=== PATIENT | female | born 1980 | race African-American/Black ===

== ENCOUNTER 2017-01-06 21:06 | Inpatient (IN) | payer OTHER ==
--- NOTE | ~2017-01-06 | DS ---
Unit #: [id number] #: [id number] Patient: FRANK KITCHEN [id number] [facility] [address] [place] [address] [id number] MR#: [id number] NAME: FRANK KITCHEN ROOM: P110 Age: 36 Sex: F Admission Date: 01/06/2017 : 1980 Discharge Date: 01/08/2017 Attending Physician: Alex Suazo M.D. Primary Care Physician: Generic Doctor Not In System DISCHARGE SUMMARY REASON FOR ADMISSION Ms. Kitchen is a 36-year-old woman with no previous psychiatric history, whose family reports that she has been acting psychotic and strange over the last several days. She has no previous history of this and no history of drug dependence. After she was medically evaluated at a local emergency room, [facility] DIAGNOSTIC STUDIES LABORATORY RESULTS: Urine drug screen was positive for benzodiazepines and cannabis. Urinalysis was positive for 3+ blood and trace leukocyte esterase. CMP was within normal limits. Thyroid stimulating hormone and free T4 were normal. CBC within normal limits. Beta HCG was negative. HOSPITAL COURSE Ms. Kitchen was admitted and placed on psychosis precautions. Zyprexa p.r.n. was provided and Risperdal 2 mg at bedtime was prescribed. The patient had rapid improvement, although she has had minimal insight and later admitted she "might have took something laced." It is unclear if this was a marijuana cigarette or an illicit drug that she took, but she could not be clear. On the date of discharge, she demanded discharge and was pushing for "AMA", so I agreed to give her a regular discharge in order to allow facilitation of followup. I believe her insight is superficial, but her memory of previous events may have been impaired by substance abuse. 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 AXIS II: No diagnosis. AXIS III: None acute. AXIS IV: AXIS V: DISCHARGE INSTRUCTIONS Follow up with [facility]. DISCHARGE MEDICATIONS Risperdal 2 mg at bedtime for psychosis to be continued until discontinued by outpatient physician. CONDITION AT DISCHARGE Improved. Unit #: [id number] #: [id number] Patient: FRANK KITCHEN PROGNOSIS Fair if the patient maintains sobriety and followup. DIET AND ACTIVITY Ad andrey. Dictated by... Roosevelt Hobbs/dioni TD: 01/11/2017 01:46 JOB #: [id number] DISCHARGE SUMMARY Page 1 of 1 X Alex Suazo MD DISCHARGE SUMMARY
--- NOTE | ~2017-01-06 | HP ---
Unit #: [id number] #: [id number] Patient: FRANK RAMOS [id number] [place] [address] [id number] MR#: [id number] NAME: FRANK RAMOS ROOM: P110 Age: 36 Sex: F Admission Date: 01/06/2017 : 1980 Attending Physician: Alex Suazo M.D. Admitting Physician: Alex Suazo M.D. Primary Care Physician: Generic Doctor Not In System HISTORY AND PHYSICAL HISTORY OF PRESENT ILLNESS The patient is a 36-year-old female admitted to [address] [place] [address] on 01/06/2017 for psychosis. PAST MEDICAL HISTORY Seasonal allergies. PAST SURGICAL HISTORY The patient denies. SOCIAL HISTORY The patient is a nurse at [employer]. She denies tobacco and drug use. Reports she drinks socially. Per nursing she admits to them that she took a Xanax that may have been laced. FAMILY MEDICAL HISTORY Noncontributory. ALLERGIES No known drug allergies. CURRENT MEDICATIONS The patient is not on any home medications. REVIEW OF SYSTEMS CONSTITUTIONAL: No fever or chills. HEENT: Denies any sore throat, ear pain or runny nose. CARDIOVASCULAR: Denies chest pain, irregular heart rhythm or palpitations. CHEST: Denies shortness of breath or cough. No hemoptysis. GASTROINTESTINAL: Denies nausea, vomiting, diarrhea or chronic constipation. ENDOCRINE: Denies history of increased thirst or urination. No recent significant weight loss or gain. GENITOURINARY: Denies dysuria, frequency, or hematuria. SKIN: Denies any rashes. HEMATOLOGIC: Denies history of increased bleeding or bruising. MUSCULOSKELETAL: Denies any hot, swollen joints. No generalized muscle pain. NEUROLOGIC: Denies problems with vision or speech. No frequent, severe headaches. No numbness, tingling or weakness in any extremities. Denies loss of bladder or bowel control. PHYSICAL EXAM Unit #: [id number] #: [id number] Patient: FRANK RAMOS GENERAL: She is awake, alert and oriented in no acute distress. VITAL SIGNS: Temperature 97.6, heart rate 130, respiration 20, blood pressure 147/106. HEIGHT: 4'11". WEIGHT: 130 pounds. SKIN: Warm and dry without rash or lesion. HEENT: Normocephalic. TMs not viewed. Oral and nasal passages clear. Conjunctivae clear. PERRLA. EOMs intact. NECK: Supple without lymphadenopathy or thyromegaly. HEART: Regular rate and rhythm without murmur. LUNGS: Clear. ABDOMEN: Soft, nontender. : Not done. EXTREMITIES: No evidence of cyanosis, clubbing or edema. Moves all without focal deficit. NEUROLOGICAL: Grossly within normal limits. Cranial Nerves: II: Visual weber are intact. III, IV AND : Extraocular movements are intact. Pupils are equal, round and reactive to light. V: Facial sensation is grossly normal. VII: Facial movements and expression are normal. VIII: Auditory acuity grossly intact. IX, X: Uvula is midline. Phonation is normal. XI: Patient shrugs shoulders and turns head normally. XII: Tongue protrudes in the midline. Sensory and Motor Function: Sensory and motor sensation is grossly normal. Motor: moves all extremities well. IMPRESSION 1. Psychiatric admission. 2. Allergies. RECOMMENDATIONS Psychiatric per psychiatrist. MEDICAL: No contraindication to participate in facility activities. MEDICAL PROGNOSIS Good. MEDICAL CONDITION Stable. Dictated by... Yesika Nunez/ria TD: 01/07/2017 23:03 JOB #: [id number] Unit #: [id number] #: [id number] Patient: FRANK RAMOS HISTORY AND PHYSICAL Page 1 of 1 X SUMI SCHMIDT APRN HISTORY AND PHYSICAL
--- NOTE | ~2017-01-06 | PA ---
Unit #: [id number] #: [id number] Patient: JOSE J KITCHEN [id number] [place] [address] [id number] MR#: [id number] NAME: JOSE J KITCHEN ROOM: P110 Age: 36 Sex: F Admission Date: 01/06/2017 : 1980 Date of Assessment: 01/07/2017 Attending Physician: Alex Suazo M.D. Admitting Physician: Alex Suazo M.D. Primary Care Physician: Generic Doctor Not In System PSYCHIATRIC ASSESSMENT DATE OF SERVICE 01/07/2017. INFORMANTS The patient, reliable; OLOP, reliable. CHIEF COMPLAINT Psychosis. HISTORY OF PRESENT ILLNESS Jose J Kitchen is a 36-year-old woman with no previous psychiatric history, whose family brought her in reporting that she says there is "a lot of evil in the world" believed she was under attack and was extremely psychotic. She had never been like this before and her family reports she has not been caring herself properly, taking care of her children. She was unable to explain her situation and was clearly in a psychotic state, so she was admitted for stabilization. PAST PSYCHIATRIC HISTORY No known previous psychiatric history. No current psychiatric medications. FAMILY PSYCHIATRIC HISTORY None reported. 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 The family denied any health issues. PAST MEDICAL HISTORY No chronic medical problems. MEDICATIONS None currently. ALLERGIES No known medication allergies. SUBSTANCE USE HISTORY The family reports suspicion the patient might have used drugs prior to admission, but there is no reported history of such. MENTAL STATUS EXAMINATION The patient presented as a mildly disheveled woman, who appeared her Unit #: [id number] #: [id number] Patient: JOSE J KITCHEN stated age. She stood 4 feet 11 inches tall, weight 130 pounds. Vital signs; temperature 97.6, pulse 130, respirations 20, blood pressure 150/79. Her speech was spontaneous, pressured, and somewhat nonsensical. Her musculoskeletal examination demonstrated mild psychomotor agitation. Her mood was irritable with a congruent affect. She was alert and oriented to person and location only. Memory and concentration were poor. Thought processes were rambling and appeared quite paranoid. Insight and judgment, fair. Fund of knowledge and abstraction, fair. ASSETS AND LIABILITIES The patient is generally in good health and has supportive family and has a professional education. Liabilities include unknown substance ingestion, possibly needing to mental status change. 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 AXIS II: No diagnosis. AXIS III: None acute. AXIS IV: AXIS V: PSYCHIATRIC PLAN The patient was admitted and placed on psychosis precautions. We will use p.r.n. Zyprexa for calming and we will monitor for response. She should clear up in a couple of days due to the substance induced nature of this disorder unless other information comes to light. Treatment goals are resolution of psychosis, improvement in insight, and improvement in coping skills. DISCHARGE PLANNING Follow up with [facility]. ESTIMATED LENGTH OF STAY 5 days. Dictated by... Alex Suazo M.D. ASHTYN/dioni TD: 01/10/2017 21:41 JOB #: [id number] PSYCHIATRIC ASSESSMENT Page 1 of 1 X Alex Suazo MD X PSYCHIATRIC ASSESSMENT
[2017-01-07 11:13] LABS: BASOPHIL% 0.4 % (0-2.5); EOSINOPHIL% 0.2 % (0.0-7.0); HEMATOCRIT 41.6 % (35.0-45.0); HEMOGLOBIN 13.9 gm/dL (12.0-16.0); LYMPHOCYTE# 2.2 X10e3 (1.0-3.5); LYMPHOCYTE% 27.1 % (17.0-45.0); MEAN CELL VOLUME 96.7 FL (83-96); MEAN CORPUSCULAR HEMOGLOBIN 32.3 PG (28-34); MEAN CORPUSCULAR HGB CONC 33.4 g/dL (30-36); MEAN PLATELET VOLUME 9.4 FL (6.5-11.5); MONOCYTE# 0.7 X10e3 (0-1.0); MONOCYTE% 9.1 % (3.0-12.0); NEUTROPHIL# 5.1 X10e3 (1.5-7.1); NEUTROPHIL% 63.2 % (40-75); PLATELET COUNT 292 X10e3 (140-420); RED CELL DISTRIBUTION WIDTH 12.1 % (11.0-15.5)
[2017-01-07 11:30] LABS: DIFF IND NO
[2017-01-07 12:00] LABS: THYROID STIMULATING HORMONE 1.02 uIU/ml (0.34-5.60)
[2017-01-07 12:06] LABS: FREE THYROXIN (T4) 1.09 ng/dL (0.58-1.64)
[2017-01-07 12:12] LABS: ALBUMIN SERUM 5.1 g/dL (3.5-5.0); BILIRUBIN,TOTAL 1.8 mg/dL (0.2-2.0); BUN/CREATININE RATIO 16.66; CALCIUM SERUM 10.2 mg/dL (8.4-10.2); CREATININE SERUM 0.9 mg/dL (0.6-1.4); GLOM FILT RATE Estimated 94.1 mL/min (>60); PROTEIN TOTAL SERUM 8.4 g/dL (6.0-8.3)
[2017-01-08 09:33] LABS: URINE APPEARANCE TURBID; URINE BLOOD 3+ (NEG); URINE COLOR DK YELLOW; URINE GLUCOSE NEG (NEG); URINE KETONE 3+ (NEG); URINE LEUKOCYTE ESTERASE TRACE (NEG); URINE NITRATE NEG (NEG); URINE PROTEIN 1+ (NEG); URINE SPECIFIC GRAVITY 1.031 (1.003-1.035)
[2017-01-08 09:38] LABS: URBCS1 AUWI 50-100 /[HPF] (0-2); URINE BACTERIA AUWI 1+ (NEGATIVE); URINE SQUAMOUS EPITHELIAL CELL OCC /[HPF]
[2017-01-08 09:50] LABS: URINE BILIRUBIN NEG (NEG)
[2017-01-08 10:30] LABS: AMPHETAMINE NEG (NEG); BARBITURATES NEG (NEG); BENZODIAZEPINES POS (NEG); COCAINE NEG (NEG); MARIJUANA POS (NEG); OPIATES NEG (NEG); TRICYCLIC ANTIDEPRESSANTS NEG (NEG); U METHADONE NEG (NEG)
== END 2017-01-08 15:54 | disposition home or self-care (01) | DRG 897 ==
LOC: P1S 21:06
PROVIDERS: Psychiatry & Neurology Psychiatry
DX: F15.151 Other stimulant abuse with stimulant-induced psychotic disorder with hallucinations (principal)
CPT/HCPCS: 80053; 80307; 81003; 84439; 84443; 84703; 85025; J2060; J3486